=== PATIENT | male | born 1945 | race Caucasian/White ===

== ENCOUNTER 2023-06-08 13:24 | Inpatient (IN) | payer OTHER ==
[~2023-06-08] VITALS: Ht 154.9 cm; Wt 83.1 kg
[~2023-06-08 13:24] MED LIST: CALCIUM 600-D31 EAC1 PO; MEMANTINE HCL10 MG PO; NITROFURANTOIN100 M8 PO; PRIMIDONE250 MG PO; RISPERIDONE0.25 M2 PO; RIVASTIGMINE1 EAC1 TD; TRAZODONE50 MG PO; TYLENOL PM EX-1 EACH PO
[2023-06-08 20:11] VITALS: BP 165/87
[2023-06-09 07:01] LABS: BASO # 0.1 10*3/uL (0.0-0.1); BASO % 0.9 % (0.0-1.0); EOS # 0.2 10*3/uL (0.0-0.4); EOS % 2.7 % (1.0-4.0); HEMATOCRIT 29.5 % (42.0-52.0); LYMPH # 2.3 10*3/uL (1.3-4.4); LYMPH % 33.8 % (27.0-41.0); MEAN CELL VOLUME 106.1 fl (80.0-94.0); MEAN CORPUSCULAR HGB 34.9 pg (27.0-31.0); MEAN CORPUSCULAR HGB CONC 32.9 g/dl (33.0-37.0); MEAN PLATELET VOLUME 8.6 fl (9.6-12.3); MONO # 0.9 10*3/uL (0.1-1.0); MONO % 12.9 % (3.0-9.0); NEUT # 3.2 10*3/uL (2.3-7.9); NEUT % 47.9 % (47.0-73.0); PLATELET COUNT AUTOMATED 347 10*3/uL (130-400); RED BLOOD COUNT 2.78 10*6/uL (4.50-5.90); RED CELL DISTRI WIDTH 14.8 % (0-14.5); WHITE BLOOD COUNT 6.7 10*3/uL (4.8-10.8)
[2023-06-09 07:23] LABS: ALKALINE PHOSPHATASE 105 U/L (46-116); BUN 9 mg/dl (9-23); CHLORIDE 103 mmol/L (98-107); CHOLESTEROL 150 mg/dL (<200); LDL CHOLESTEROL 89 mg/dL (9-159); SGPT/ALT 32 U/L (10-49); TOTAL PROTEIN 6.5 gm/dL (6.0-8.0); TRIGLYCERIDES 103 mg/dl (<150)
[2023-06-09 07:58] LABS: VITAMIN D, 25-HYDROXY 13.2 ng/mL (30-100)
[2023-06-09 08:00] VITALS: BP 105/57
[2023-06-09 20:00] VITALS: BP 129/73
[2023-06-10 07:37] VITALS: BP 109/79
[2023-06-10 20:00] VITALS: BP 135/86
[2023-06-11 08:00] VITALS: BP 156/65
[2023-06-11 20:00] VITALS: BP 129/90
[2023-06-12 07:00] VITALS: BP 112/49
[2023-06-12 08:26] LABS: BASO % 0.7 % (0.0-1.0); EOS # 0.2 10*3/uL (0.0-0.4); EOS % 3.8 % (1.0-4.0); HEMATOCRIT 25.6 % (42.0-52.0); LYMPH # 2.2 10*3/uL (1.3-4.4); LYMPH % 38.4 % (27.0-41.0); MEAN CELL VOLUME 103.6 fl (80.0-94.0); MEAN CORPUSCULAR HGB 34.4 pg (27.0-31.0); MEAN CORPUSCULAR HGB CONC 33.2 g/dl (33.0-37.0); MEAN PLATELET VOLUME 8.7 fl (9.6-12.3); MONO # 0.7 10*3/uL (0.1-1.0); MONO % 11.6 % (3.0-9.0); NEUT # 2.4 10*3/uL (2.3-7.9); PLATELET COUNT AUTOMATED 257 10*3/uL (130-400); RED BLOOD COUNT 2.47 10*6/uL (4.50-5.90); WHITE BLOOD COUNT 5.6 10*3/uL (4.8-10.8)
[2023-06-12 08:40] VITALS: BP 128/52
[2023-06-12 08:45] LABS: ALKALINE PHOSPHATASE 94 U/L (46-116); BUN 12 mg/dl (9-23); CHLORIDE 105 mmol/L (98-107); POTASSIUM 3.7 mmol/L (3.4-5.1); SGPT/ALT 34 U/L (10-49); TOTAL PROTEIN 6.1 gm/dL (6.0-8.0)
[2023-06-12 20:00] VITALS: BP 126/72
[2023-06-13 06:19] LABS: BASO # 0.1 10*3/uL (0.0-0.1); BASO % 0.8 % (0.0-1.0); EOS # 0.1 10*3/uL (0.0-0.4); EOS % 1.4 % (1.0-4.0); HEMATOCRIT 28.1 % (42.0-52.0); LYMPH # 3.1 10*3/uL (1.3-4.4); LYMPH % 41.5 % (27.0-41.0); MEAN CELL VOLUME 104.1 fl (80.0-94.0); MEAN CORPUSCULAR HGB 34.1 pg (27.0-31.0); MEAN CORPUSCULAR HGB CONC 32.7 g/dl (33.0-37.0); MEAN PLATELET VOLUME 8.4 fl (9.6-12.3); MONO # 0.8 10*3/uL (0.1-1.0); MONO % 11.4 % (3.0-9.0); NEUT # 3.2 10*3/uL (2.3-7.9); NEUT % 43.5 % (47.0-73.0); PLATELET COUNT AUTOMATED 267 10*3/uL (130-400); RED CELL DISTRI WIDTH 15.3 % (0-14.5); WHITE BLOOD COUNT 7.4 10*3/uL (4.8-10.8)
[2023-06-13 08:55] VITALS: BP 107/51
[2023-06-13 20:00] VITALS: BP 104/62
[2023-06-14 07:49] VITALS: BP 123/58
[2023-06-14 10:08] LABS: BASO % 0.6 % (0.0-1.0); EOS # 0.1 10*3/uL (0.0-0.4); HEMATOCRIT 26.9 % (42.0-52.0); LYMPH # 3.1 10*3/uL (1.3-4.4); LYMPH % 43.6 % (27.0-41.0); MEAN CELL VOLUME 106.7 fl (80.0-94.0); MEAN CORPUSCULAR HGB 34.5 pg (27.0-31.0); MEAN CORPUSCULAR HGB CONC 32.3 g/dl (33.0-37.0); MEAN PLATELET VOLUME 8.4 fl (9.6-12.3); MONO # 0.8 10*3/uL (0.1-1.0); NEUT # 2.9 10*3/uL (2.3-7.9); NEUT % 41.5 % (47.0-73.0); PLATELET COUNT AUTOMATED 238 10*3/uL (130-400); RED BLOOD COUNT 2.52 10*6/uL (4.50-5.90); RED CELL DISTRI WIDTH 15.9 % (0-14.5); WHITE BLOOD COUNT 7.1 10*3/uL (4.8-10.8)
[2023-06-14 10:31] LABS: ALKALINE PHOSPHATASE 99 U/L (46-116); BUN 12 mg/dl (9-23); CHLORIDE 106 mmol/L (98-107); POTASSIUM 4.4 mmol/L (3.4-5.1); SGPT/ALT 40 U/L (10-49); TOTAL PROTEIN 6.4 gm/dL (6.0-8.0)
[2023-06-14 20:00] VITALS: BP 120/72
[2023-06-15 07:39] VITALS: BP 110/68
[2023-06-15 19:06] LABS: PHENOBARBITAL SERUM 20 ug/mL (15-40); PRIMIDONE (MYSOLINE) 13.2 ug/mL (5.0-12.0)
[2023-06-15 20:00] VITALS: BP 105/65
[2023-06-16 07:54] VITALS: BP 123/74
[2023-06-16 20:00] VITALS: BP 117/68
[2023-06-17 07:47] VITALS: BP 129/98
[2023-06-17 20:00] VITALS: BP 122/65
[2023-06-18 07:20] VITALS: BP 126/63
[2023-06-18 20:00] VITALS: BP 125/68
[2023-06-19 08:00] VITALS: BP 104/58
[2023-06-19 20:00] VITALS: BP 106/58
[2023-06-20 08:00] VITALS: BP 138/52
[2023-06-20 20:00] VITALS: BP 128/62
[2023-06-21 08:00] VITALS: BP 111/64
[2023-06-21 20:00] VITALS: BP 110/46
[2023-06-22 07:33] VITALS: BP 106/71
[2023-06-22 20:00] VITALS: BP 112/74
[2023-06-23 08:00] VITALS: BP 122/51
[2023-06-23] MEDS ORDERED: Vitamin D (1,000 UNI PO (09:25)
[2023-06-23] MEDS ORDERED: RISPERIDONE M-0.5 MG OGT (09:25)
[2023-06-23] MEDS ORDERED: LORAZEPAM1 MG PO (09:25)
[2023-06-23] MEDS ORDERED: MEMANTINE HCL10 MG PO (09:25)
[2023-06-23] MEDS ORDERED: PRIMIDONE250 MG PO (09:25)
[2023-06-23] MEDS ORDERED: RIVASTIGMINE1 EAC2 T (09:25)
[2023-06-23] MEDS ORDERED: MIRTAZAPINE15 M2 PO (09:25)
== END 2023-06-23 13:42 | disposition hospice, home (50) | DRG 883 ==
LOC: 3N 13:24
PROVIDERS: Counselor Professional; Student in an Organized Health Care Education/Training Program; ADMIT Psychiatry & Neurology Psychiatry; ATTEND Psychiatry & Neurology Psychiatry
PROC: GZHZZZZ Group Psychotherapy (ICD-10-PCS; principal; 2023-06-12)
DX: F63.81 Intermittent explosive disorder (principal); F33.9 Major depressive disorder, recurrent, unspecified; N30.01 Acute cystitis with hematuria; E44.0 Moderate protein-calorie malnutrition; G30.9 Alzheimer's disease, unspecified; J45.909 Unspecified asthma, uncomplicated; G40.909 Epilepsy, unspecified, not intractable, without status epilepticus; F02.80 Dementia in other diseases classified elsewhere, unspecified severity, without behavioral disturbance, psychotic disturbance, mood disturbance, and anxiety; D53.9 Nutritional anemia, unspecified; Z86.73 Personal history of transient ischemic attack (TIA), and cerebral infarction without residual deficits; Z68.34 Body mass index [BMI] 34.0-34.9, adult; Z66 Do not resuscitate; Z51.5 Encounter for palliative care; B96.20 Unspecified Escherichia coli [E. coli] as the cause of diseases classified elsewhere